=== PATIENT | male | born 1980 | race Caucasian/White ===

== ENCOUNTER 2017-07-07 20:45 | Emergency (ER) | payer BC ==
[~2017-07-07] VITALS: Ht 188 cm; Wt 105.8 kg
[2017-07-07 20:49] VITALS: TEMP 36.9; Ht 188 cm; Wt 105.8 kg
[2017-07-07 21:14] VITALS: O2SAT 100
[2017-07-07] MEDS ORDERED: ASPIRIN 81 MG CHEW PO STA (21:18)
[2017-07-07] MEDS: NITROGLYCERIN 0.4 MG SL PER TAB CHARGE SL PRN ×2 (21:30→21:53)
[2017-07-07 22:13] LABS: BASO % 0.6 %; BASO ABS # 0.05 K/uL (0-0.2); EOS ABS # 0.35 K/uL (0-0.5); HEMOGLOBIN 15.8 g/dL (14.0-18.0); IG# 0.01 K/uL (0.00-0.02); LYMPH % 31.1 %; LYMPH ABS # 2.75 K/uL (1.2-3.4); MEAN CORPUSCULAR HEMOGLOBIN 31.6 pg (25-34); MEAN CORPUSCULAR HGB CONC 35.9 g/dl (32-36); MEAN PLATELET VOLUME 9.3 fL (7.4-10.4); MONO % 12.7 %; MONO ABS # 1.12 K/uL (0.11-0.59); NEUT % 51.5 %; NEUT ABS # 4.56 K/uL (1.4-6.5); PLATELET COUNT 259 K/uL (130-400); RED CELL DISTRIBUTION WIDTH CV 12.1 % (11.5-14.5); RED CELL DISTRIBUTION WIDTH SD 38.3 fL (36.4-46.3); WHITE BLOOD COUNT 8.84 K/uL (4.8-10.8)
--- NOTE | 2017-07-07 22:17 | DIAGNOSTIC IMAGING REPORT ---
CHEST ONE VIEW PORTABLE HISTORY: 36 years-old Male cough, irregular heartbeat acute cough COMPARISON: None available TECHNIQUE: Portable AP view of the chest FINDINGS: Cardiomediastinal and hilar silhouettes are within normal limits. No pneumothorax, pleural effusion, focal airspace consolidation or overt pulmonary edema. Bones of the chest appear grossly intact. IMPRESSION: No acute process. The above report was generated using voice recognition software. It may contain grammatical, syntax or spelling errors. Electronically signed by: Geraldo Marshall M.D. 07/07/2017 10:16 PM Dictated Date/Time: 07/07/2017 10:15 PM
[2017-07-07 22:21] LABS: ALBUMIN 3.7 gm/dl (3.4-5.0); ALT/SGPT 87 U/L (12-78); BLOOD UREA NITROGEN 15 mg/dl (7-18); CALCIUM 8.9 mg/dl (8.5-10.1); CARBON DIOXIDE 28 mmol/L (21-32); CREATININE 1.32 mg/dl (0.60-1.40); GLUCOSE 100 mg/dl (70-99); POTASSIUM 3.7 mmol/L (3.5-5.1); SODIUM 138 mmol/L (136-145)
[2017-07-07 22:31] LABS: ALKALINE PHOSPHATASE 94 U/L (45-117); AST/SGOT 56 U/L (15-37); PHOSPHORUS 2.6 mg/dl (2.5-4.9); TOTAL PROTEIN 7.8 gm/dl (6.4-8.2)
[2017-07-07] MEDS ORDERED: AZIT250T PO (22:41)
[2017-07-07] MEDS ORDERED: GUAI1SOL5 PO (22:43)
--- NOTE | 2017-07-07 23:00 | EMERGENCY ROOM VISIT NOTE ---
History Report prepared by Braden: Dee Landrum Under the Supervision of: Dr. Denise Verduzco M.D. First contact with patient: 21:13 Chief Complaint: IRREGULAR HEARTBEAT Stated Complaint: SOB, IRRATIC HEART RATE, HEAVINESS ON CHEST Nursing Triage Summary: Patient saw PCP yesterday and was given Azthromycin for a chest cold and today started with chest heaviness and irregular heart beat. NO history of AFib/AFlutter Also c/o SOB . History of Present Illness The patient is a 36 year old male who presents to the Emergency Room with complaints of an episode of an irregular heartbeat starting tonight. The patient states that he went to [facility] yesterday for a cough that he has had for 4 days. He states that they gave him azithromycin and a cough suppressant. He states that tonight after eating half an [place] hoagie for dinner he started to feel heaviness in his chest. He states that he started to feel like his heart beat was off. He currently states that his chest feels dense and tight. He states that he has had the feeling of palpitations in the past for a year, but they are intermittent and do not last long. The patient complains of fevers , chills, diarrhea, and nasal congestion. The patient denies swelling in his legs, recent travel, abnormal eating/drinking, vomiting, drinking coffee, drinking energy drinks, being a smoker, taking blood pressure medications, and having a PCP. The patient notes that he does drink 2-3 beers after work, but hasn't drank since Thursday. He notes that his blood pressure normally runs in the 130s but was 167/80 at [facility]. Source of History: patient Onset: tonight Position: other (global) Quality: other (ireegular heartbeat) Timing: other (episode) Associated Symptoms: + fevers, + chills, + cough, + chest pain, + diarrhea, No vomiting Note: The patient complains of nasal congestion. The patient denies leg swelling, abnormal eating/drinking, drinking coffee, and drinking energy drinks. Review of Systems See HPI for pertinent positives & negatives. A total of 10 systems reviewed and were otherwise negative. Past Medical & Surgical Medical Problems: (1) No Known Active Medical Problems Family History Patient reports no known family medical history. Social History Smoking Status: Never Smoker Alcohol Use: occasionally Marital Status: Housing Status: lives with family Occupation Status: employed Current/Historical Medications Scheduled Amoxicillin & Pot Clavulanate (Augmentin 875-125 mg), 875 MG PO BID Azithromycin (Zithromax), 250 MG PO DAILY Scheduled PRN Guaifenesin-Codeine (Codeine/Guaifenesin 100-10 mg/5Ml), 10 ML PO QID PRN for Cough Allergies Coded Allergies: No Known Allergies (Unverified , 07/07/17) Physical Exam Vital Signs Date Time Temp Pulse Resp B/P (MAP) Pulse Ox O2 Delivery O2 Flow Rate FiO2 07/07/17 23:57 92 16 163/101 100 Room Air 07/07/17 22:35 95 18 144/100 100 Room Air 07/07/17 21:50 107 18 153/88 100 Room Air 07/07/17 21:30 101 18 158/106 100 Room Air 07/07/17 21:28 100 07/07/17 21:14 100 Room Air 07/07/17 21:13 103 18 174/110 99 Room Air 07/07/17 20:52 Room Air 07/07/17 20:49 36.9 114 18 184/132 95 Room Air Physical Exam Vital signs reviewed. General: Anxious appearing, hypertensive, in no significant distress. HEENT: No scleral icterus, PERRLA, neck supple. Atraumatic. Cardiovascular: Regular rate and rhythm with occasional ectopy, no extra sounds. Pulmonary: Clear to auscultation bilaterally, normal work of breathing. Moist cough. Abdomen: Soft, nontender, nondistended, positive bowel sounds. Musculoskeletal: Atraumatic, no peripheral edema. Neurologic: Patient awake alert and oriented x 3, full strength in all 4 extremities. Cranial nerves 2 through 12 grossly intact. Skin: Warm, dry, no rash Medical Decision & Procedures ER Provider Diagnostic Interpretation: Radiology results as stated below per my review and radiologist interpretation: CHEST ONE VIEW PORTABLE HISTORY: 36 years-old Male cough, irregular heartbeat acute cough COMPARISON: None available TECHNIQUE: Portable AP view of the chest FINDINGS: Cardiomediastinal and hilar silhouettes are within normal limits. No pneumothorax, pleural effusion, focal airspace consolidation or overt pulmonary edema. Bones of the chest appear grossly intact. IMPRESSION: No acute process. The above report was generated using voice recognition software. It may contain grammatical, syntax or spelling errors. Electronically signed by: Geraldo Marshall M.D. 07/07/2017 10:16 PM Dictated Date/Time: 07/07/2017 10:15 PM Laboratory Results 07/07/17 21:15 Red Blood Count 5.00, Mean Corpuscular Volume 88.0, Mean Corpuscular Hemoglobin 31.6, Mean Corpuscular Hemoglobin Concent 35.9, Mean Platelet Volume 9.3, Neutrophils (%) (Auto) 51.5, Lymphocytes (%) (Auto) 31.1, Monocytes (%) (Auto) 12.7, Eosinophils (%) (Auto) 4.0, Basophils (%) (Auto) 0.6, Neutrophils # (Auto ) 4.56, Lymphocytes # (Auto) 2.75, Monocytes # (Auto) 1.12, Eosinophils # (Auto ) 0.35, Basophils # (Auto) 0.05 07/07/17 21:15 Test 07/07/17 21:15 White Blood Count 8.84 K/uL (4.8-10.8) Red Blood Count 5.00 M/uL (4.7-6.1) Hemoglobin 15.8 g/dL (14.0-18.0) Hematocrit 44.0 % (42-52) Mean Corpuscular Volume 88.0 fL (80-100) Mean Corpuscular Hemoglobin 31.6 pg (25-34) Mean Corpuscular Hemoglobin Concent 35.9 g/dl (32-36) Platelet Count 259 K/uL (130-400) Mean Platelet Volume 9.3 fL (7.4-10.4) Neutrophils (%) (Auto) 51.5 % Lymphocytes (%) (Auto) 31.1 % Monocytes (%) (Auto) 12.7 % Eosinophils (%) (Auto) 4.0 % Basophils (%) (Auto) 0.6 % Neutrophils # (Auto) 4.56 K/uL (1.4-6.5) Lymphocytes # (Auto) 2.75 K/uL (1.2-3.4) Monocytes # (Auto) 1.12 K/uL (0.11-0.59) Eosinophils # (Auto) 0.35 K/uL (0-0.5) Basophils # (Auto) 0.05 K/uL (0-0.2) RDW Standard Deviation 38.3 fL (36.4-46.3) RDW Coefficient of Variation 12.1 % (11.5-14.5) Immature Granulocyte % (Auto) 0.1 % Immature Granulocyte # (Auto) 0.01 K/uL (0.00-0.02) Anion Gap 7.0 mmol/L (3-11) Est Creatinine Clear Calc Drug Dose 101.3 ml/min Estimated GFR () 80.4 Estimated GFR (Non- 69.4 BUN/Creatinine Ratio 11.4 (10-20) Calcium Level 8.9 mg/dl (8.5-10.1) Phosphorus Level 2.6 mg/dl (2.5-4.9) Magnesium Level 2.4 mg/dl (1.8-2.4) Total Bilirubin 0.4 mg/dl (0.2-1) Direct Bilirubin < 0.1 mg/dl (0-0.2) Aspartate Amino Transf (AST/SGOT) 56 U/L (15-37) Alanine Aminotransferase (ALT/SGPT) 87 U/L (12-78) Alkaline Phosphatase 94 U/L (45-117) Total Creatine Kinase 336 U/L (39-308) Troponin I < 0.015 ng/ml (0-0.045) Total Protein 7.8 gm/dl (6.4-8.2) Albumin 3.7 gm/dl (3.4-5.0) Thyroid Stimulating Hormone (TSH) 0.421 uIu/ml (0.300-4.500) Laboratory results per my review. Medications Administered Medications (Trade) Dose Ordered Sig/Talat Route Start Time Stop Time Status Last Admin Dose Admin Aspirin (Aspirin Chew) 324 mg NOW STAT PO 07/07/17 21:18 07/07/17 21:22 DC 07/07/17 21:30 324 MG Nitroglycerin (Nitrostat Tab) 0.4 mg Q5M PRN SL 07/07/17 21:30 07/08/17 01:30 DC 07/07/17 21:53 0.4 MG Albuterol (Ventolin Hfa Inhaler) 2 puffs NOW ONCE INH 07/08/17 00:00 07/08/17 00:02 DC 07/08/17 00:15 2 PUFFS Amoxicillin/ Clavulanate Potassium (Augmentin Tab) 875 mg NOW ONCE PO 07/08/17 00:00 07/08/17 00:02 DC 07/08/17 00:15 875 MG ECG Per My Interpretation Indication: chest pain Rate (beats per minute): 101 Rhythm: sinus tachycardia Findings: PAC, PVC, no acute ischemic change, other (left atrial enlargement, possible previous inferior infarct) Comparison ECG Date: no prior available ED Course 2115: Past medical records reviewed. The patient was evaluated in room C12B. A complete history and physical examination was performed. 2117: Ordered Aspirin 324 mg PO. 2129: Ordered Nitroglycerin 0.4 mg PRN SL Chest Pain. 2357: Upon reevaluation, the patient appeared to have improvement of his symptoms. I discussed findings with him. He verbalized agreement of the treatment plan. The patient was discharged home. 0000: Ordered Augmentin Tab 875 mg PO, Albuterol 2 puffs INH. Medical Decision Differential diagnosis: Etiologies such as premature contractions, electrolyte abnormality, cardiac dysrhythmia, thyroid dysfunction, pulmonary embolism, infection, gastrointestinal, as well as others were entertained. This patient was evaluated and appeared to be in no significant distress. Physical examination reveals occasional ectopy. Patient was placed on the manager export and found to have PACs with a pause and occasional PVCs. Patient recently started azithromycin which is unlikely to cause the symptoms however he is advised to stop. Patient is noted to be hypertensive for which he will follow-up as an outpatient. Patient's is at the bedside. I did discuss my findings. I suspect the patient has an underlying hypertension that has not been diagnosed or treated. Patient stated he is attempting to establish with a PCP. He was advised to minimize his alcohol consumption, minimize stimulants in his diet and return to the emergency department for worsening of symptoms or any medical concerns. Medication Reconcilliation Current Medication List: was personally reviewed by me Blood Pressure Screening Patient's blood pressure: Elevated blood pressure Blood pressure disposition: Referred to PCP Impression Primary Impression: PAC (premature atrial contraction) Additional Impressions: Bronchitis Hypertension PVCs (premature ventricular contractions) Scribe Attestation The scribe's documentation has been prepared under my direction and personally reviewed by me in its entirety. I confirm that the note above accurately reflects all work, treatment, procedures, and medical decision making performed by me. Departure Information Dispostion Home / Self-Care Prescriptions Amoxicillin & Pot Clavulanate (Augmentin 875-125 mg) 1 Tab Tab 875 MG PO BID for 7 Days, #14 TAB Prov: Denise Verduzco M.D. 07/08/17 Referrals No Doctor, Assigned (PCP) Forms HOME CARE DOCUMENTATION FORM, IMPORTANT VISIT INFORMATION Patient Instructions My [facility] That Odd Additional Instructions Diagnosis: Bronchitis, PACs, hypertension Stop azithromycin. Augmentin 875 mg twice daily for 7 days. Albuterol 2 puffs every 4 hours as needed for cough or wheezing. Avoid caffeine and alcohol. Please contact your primary care physician as soon as possible for blood pressure recheck. Return to the emergency department for worsening of symptoms or any medical concerns. Problem Qualifiers
[2017-07-07 23:57] VITALS: BP 163/101; PULSE 92; O2SAT 100
[2017-07-08] MEDS ORDERED: ALBUTEROL HFA 8 GM INHALER INH ONE
[2017-07-08] MEDS ORDERED: AMOXICILLIN/CLAVULANATE TAB 875 MG TAB PO ONE
[2017-07-08] MEDS ORDERED: AMOX875T PO (00:09)
== END 2017-07-08 00:15 | disposition home or self-care (01) ==
LOC: C.EDB 20:47 → C.EDC 07-08 00:15
DX: I49.1 Atrial premature depolarization (principal); I49.3 Ventricular premature depolarization; J40 Bronchitis, not specified as acute or chronic; I10 Essential (primary) hypertension

== ENCOUNTER → 2017-07-27 | Outpatient (CLI) | payer BC ==
[~2017-07-27] MED LIST: AZIT250T PO; GUAI1SOL5 PO
[2017-07-27 13:26] LABS: BLOOD UREA NITROGEN 19 mg/dl (7-18); CALCIUM 9.4 mg/dl (8.5-10.1); CARBON DIOXIDE 26 mmol/L (21-32); CREATININE 1.23 mg/dl (0.60-1.40); GLUCOSE 105 mg/dl (70-99); POTASSIUM 4.4 mmol/L (3.5-5.1); SODIUM 136 mmol/L (136-145)
== END | disposition home or self-care (01) ==
LOC: C.LABPBG 10:47
PROVIDERS: ATTEND Physician Assistant
DX: I10 Essential (primary) hypertension (principal)